=== PATIENT | male | born 1960 | race Caucasian/White ===

== ENCOUNTER 2023-08-15 01:42 | Emergency (ER) | payer OTHER, MEDICAID ==
[~2023-08-15] VITALS: Ht 195.6 cm; Wt 245.0 kg
[2023-08-15 01:50] VITALS: BP 132/66
[2023-08-15 02:02] LABS: BASOPHILS % (AUTO) 1 % (0-10)
[2023-08-15 02:04] LABS: EOSINOPHILS # (AUTO) 0.2 10^3/uL (0.0-0.3); EOSINOPHILS % (AUTO) 5 % (0-10); HEMATOCRIT 29 % (40-54); HEMOGLOBIN 8.9 g/dL (13.3-17.7); LYMPHOCYTES # (AUTO) 0.5 10^3/uL (1.0-4.0); LYMPHOCYTES % (AUTO) 11 % (12-44); MEAN CORPUSCULAR HEMOGLOBIN 28 pg (25-34); MEAN CORPUSCULAR HGB CONC 31 g/dL (32-36); MEAN CORPUSCULAR VOLUME 91 fL (80-99); MONOCYTES # (AUTO) 0.4 10^3/uL (0.0-1.0); MONOCYTES % (AUTO) 10 % (0-12); NEUTROPHILS # (AUTO) 3.3 10^3/uL (1.8-7.8); NEUTROPHILS % (AUTO) 73 % (42-75); PLATELET COUNT 121 10^3/uL (130-400); WHITE BLOOD COUNT 4.5 10^3/uL (4.3-11.0)
[2023-08-15 02:13] LABS: INR 1.7 (0.8-1.4); PROTHROMBIN TIME PATIENT 20.5 SEC (12.2-14.7)
[2023-08-15 02:14] LABS: ALBUMIN 3.4 GM/DL (3.2-4.5); CHLORIDE 97 MMOL/L (98-107); POTASSIUM 3.4 MMOL/L (3.6-5.0); SODIUM 137 MMOL/L (135-145)
[2023-08-15 02:15] LABS: CALCIUM 8.5 MG/DL (8.5-10.1)
[2023-08-15 02:16] LABS: GLUCOSE 117 MG/DL (70-105); TOTAL PROTEIN 5.8 GM/DL (6.4-8.2)
[2023-08-15 02:17] LABS: CARBON DIOXIDE 29 MMOL/L (21-32)
[2023-08-15 02:18] LABS: BILIRUBIN,TOTAL 1.4 MG/DL (0.1-1.0)
[2023-08-15 02:20] LABS: ALKALINE PHOSPHATASE 186 U/L (40-136); GFR ESTIMATED 48
[2023-08-15 02:21] LABS: BUN/CREATININE RATIO 21
[2023-08-15 02:23] LABS: ALANINE AMINOTRANSFERASE 21 U/L (0-55)
[2023-08-15 02:24] LABS: MAGNESIUM 2.1 MG/DL (1.6-2.4)
--- NOTE | 2023-08-15 02:29 | ED General ---
General Chief Complaint: Cardiac/General Problems Stated Complaint: ADEMA Source of Information: Patient (LIMITED HISTORIAN), EMS, Longterm Records History of Present Illness Date Seen by Provider: Aug 15, 2023 Time Seen by Provider: 01:39 Initial Comments PT ARRIVES VIA EMS FROM [facility] PT IS MORBIDLY OBESE, GREATER THAN 500 LBS--EXACT WEIGHT IS NOT KNOWN, REQUIRES 8 PERSON ASSIST TO TRANSFER FROM EMS COT TO ER BED PT IS HERE FOR CHRONIC EDEMA, AND REPORTEDLY A COUPLE OF DAYS AGO, HIS LASIX DOSE WAS CUT IN HALF FOR UNKNOWN REASONS, AND NOW HE IS REPORTEDLY HAVING SWELLI NG PT IS A POOR HISTORIAN, BUT STATES THE SWELLING HAS BEEN GOING ON FOR A LONG TIME AND IS NOT ANY DIFFERENT TONIGHT PT IS CHRONICALLY SHORT OF BREATH AND IS ON 3L/NC CONTINUOUSLY, AND PT STATES SHORTNESS OF BREATH IS NO DIFFERENT TONIGHT. EMS REPORT THAT O2 SATS WERE IN THE 90'S ON ROOM AIR, AND PT WAS NOT PUT ON O2 BY EMS, AND IS ON ROOM AIR WHEN HE ARRIVES IN ER. NO CHEST PAIN PT HAS NO NEW COMPLAINTS TONIGHT PT HAS CHRONIC VENOUS STASIS CHANGES AND STASIS ULCERS TO LOWER LEGS THAT ARE WEEPING, BUT THERE ARE NO DRESSINGS ON THEM AT THIS TIME. PT WITH CHRONIC ATRIAL FIBRILLATION ON ELIQUIS, COPD WITH CHRONIC RESPIRATORY FAILURE AND OBESITY HYPOVENTILATION, CHF, POLYNEUROPATHY,, CHRONIC LEG CELLULITIS, HTN, CHF, CHRONIC EDEMA, CHRONIC PAIN NO PRIOR VISITS HERE PCP: KASHIF, DR. MORGAN BIZTALK CONSULTANT: DR. EDDY AT [facility] Allergies and Home Medications Allergies Coded Allergies: Penicillins (Verified Allergy, Unknown, 08/15/23) Sulfa (Sulfonamide Antibiotics) (Verified Allergy, Unknown, 08/15/23) azithromycin (Verified Allergy, Unknown, 08/15/23) clarithromycin (Verified Allergy, Unknown, 08/15/23) sulfamethoxazole (Verified Allergy, Unknown, 08/15/23) trimethoprim (Verified Allergy, Unknown, 08/15/23) Patient Home Medication List Home Medication List Reviewed: Yes Review of Systems Review of Systems Constitutional: no symptoms reported Respiratory: see HPI Cardiovascular: see HPI Gastrointestinal: no symptoms reported Musculoskeletal: see HPI Skin: see HPI Psychiatric/Neurological: No Symptoms Reported Past [id number] Hx Patient Social History Tobacco Use?: No Substance use?: No Alcohol Use?: No Past Medical History Surgeries: Yes (RIGHT FOOT-BULLET REMOVED; LIPOMA ON BACK REMOVED) Orthopedic Respiratory: Yes (CHRONIC RESP FAILURE-O2 3L/NC; OBESITY HYPOVENTILATION) Sleep Apnea, COPD Cardiac: Yes (CHF; CHRONIC VENOUS INSUFFICIENCY-PERIPHERAL) Atrial Fibrillation, Cardiomyopathy, Chronic Edema/Swelling, High Cholesterol, Hypertension, Peripheral Vascular Neurological: Yes (POLYNEUROPATHY; TREMOR) Neuropathy Genitourinary: Yes (ELEVATED PSA) Gastrointestinal: No Musculoskeletal: Yes (CHRONIC GENERALIZED PAIN; NON-AMBULATORY) Degenerate Disk Disease, Chronic Back Pain Endocrine: Yes (SUPER MORBID OBESITY--WEIGHT > 500 LBS) Hypothyroidsim Cancer: No Integumentary: Yes (CHRONIC VENOUS STASIS ULCERS; CHRONIC LEG CELLULITIS) Blood Disorders: Yes (ANEMIA) Physical Exam Vital Signs Vital Signs - First Documented 08/15/23 01:50 Temp 36.0 Pulse 66 Resp 16 B/P (MAP) 132/66 (88) Capillary Refill : Height, Weight, BMI Height: '" Weight: lbs. oz. kg; BMI Method: General Appearance: No Apparent Distress, WD/WN, Obese (SUPERMORBIDLY OBESE) HEENT: PERRL/EOMI Neck: Normal Inspection Respiratory: Normal Breath Sounds, No Accessory Muscle Use, No Respiratory Distress Cardiovascular: Regular Rate, Rhythm (AFIB ON MONITOR BUT RATE IS IN 50'S AND IS REGULAR TO AUSCULTATION) Gastrointestinal: Non Tender Genital/Rectal: Other (SCROTAL EDEMA) Extremity: Normal Capillary Refill, Other (UNABLE TO DETERMINE EDEMA DUE TO OBESITY, BUT WITH SIGNIFICANT CHRONIC VENOUS STASIS CHANGES TO BILATERAL LOWER EXTREMITIES, WITH CHRONIC VENOUS STASIS ULCERS,WITH GENERALIZED WEEPING OF LOWER LEGS, AND LICHENIFICATION OF SKIN OF LOWER LEGS. FEET ARE PINK AND WARM WITH GOOD CAP REFILL. 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 Norm as Tested Skin: Warm/Dry, Pallor, Other ( ABOVE) Progress/Results/Core Measures Suspected Sepsis SIRS Temperature: Pulse: Respiratory Rate: Laboratory Tests 08/15/23 01:54: White Blood Count 4.5 Blood Pressure / Mean: Laboratory Tests 08/15/23 01:54: Creatinine 1.60H, INR Comment 1.7H, Platelet Count 121L, Total Bilirubin 1.4H Results/Orders Lab Results Laboratory Tests Test 08/15/23 01:47 08/15/23 01:54 Range/Units Influenza Type A (RT-PCR) Not Detected Not Detecte Influenza Type B (RT-PCR) Not Detected Not Detecte SARS-CoV-2 RNA (RT-PCR) Not Detected Not Detecte White Blood Count 4.5 4.3-11.0 10^3/uL Red Blood Count 3.14 L 4.30-5.52 10^6/uL Hemoglobin 8.9 L 13.3-17.7 g/dL Hematocrit 29 L 40-54 % Mean Corpuscular Volume 91 80-99 fL Mean Corpuscular Hemoglobin 28 25-34 pg Mean Corpuscular Hemoglobin Concent 31 L 32-36 g/dL Red Cell Distribution Width 14.6 H 10.0-14.5 % Platelet Count 121 L 130-400 10^3/uL Mean Platelet Volume 11.0 9.0-12.2 fL Immature Granulocyte % (Auto) 0 % Neutrophils (%) (Auto) 73 42-75 % Lymphocytes (%) (Auto) 11 L 12-44 % Monocytes (%) (Auto) 10 0-12 % Eosinophils (%) (Auto) 5 0-10 % Basophils (%) (Auto) 1 0-10 % Neutrophils # (Auto) 3.3 1.8-7.8 10^3/uL Lymphocytes # (Auto) 0.5 L 1.0-4.0 10^3/uL Monocytes # (Auto) 0.4 0.0-1.0 10^3/uL Eosinophils # (Auto) 0.2 0.0-0.3 10^3/uL Basophils # (Auto) 0.0 0.0-0.1 10^3/uL Immature Granulocyte # (Auto) 0.0 0.0-0.1 10^3/uL Percent Immature Platelet Fraction 4.8 0.0-7.6 % Prothrombin Time 20.5 H 12.2-14.7 SEC INR Comment 1.7 H 0.8-1.4 Activated Partial Thromboplast Time 53 H 24-35 SEC Sodium Level 137 135-145 MMOL/L Potassium Level 3.4 L 3.6-5.0 MMOL/L Chloride Level 97 L 98-107 MMOL/L Carbon Dioxide Level 29 21-32 MMOL/L Anion Gap 11 5-14 MMOL/L Blood Urea Nitrogen 33 H 7-18 MG/DL Creatinine 1.60 H 0.60-1.30 MG/DL Estimat Glomerular Filtration Rate 48 BUN/Creatinine Ratio 21 Glucose Level 117 H 70-105 MG/DL Calcium Level 8.5 8.5-10.1 MG/DL Corrected Calcium 9.0 8.5-10.1 MG/DL Magnesium Level 2.1 1.6-2.4 MG/DL Total Bilirubin 1.4 H 0.1-1.0 MG/DL Aspartate Amino Transf (AST/SGOT) 19 5-34 U/L Alanine Aminotransferase (ALT/SGPT) 21 0-55 U/L Alkaline Phosphatase 186 H 40-136 U/L Troponin I < 0.028 <0.028 NG/ML B-Type Natriuretic Peptide 308.2 H <100.0 PG/ML Total Protein 5.8 L 6.4-8.2 GM/DL Albumin 3.4 3.2-4.5 GM/DL Free Thyroxine 0.90 0.70-1.48 NG/DL TSH Toole Testing 14.21 H 0.35-4.94 UIU/ML My Orders Orders - RAMAKRISHNA WHITING DO Ed Iv/Invasive Line Start (08/15/23:47) Ekg Tracing (08/15/23:47) O2 (08/15/23:47) Monitor-Rhythm Ecg Trace Only (08/15/23:47) Chest 1 View, Ap/Pa Only (08/15/23:47) Bnp [place] (08/15/23:47) Cbc And Automated Diff (08/15/23:47) Comprehensive Metabolic Panel (08/15/23:47) Magnesium (08/15/23:47) Protime With Inr (08/15/23:47) Partial Thromboplastin Time (08/15/23:47) Thyroid Analyzer (08/15/23:47) Troponin I [place] (08/15/23:47) Covid 19 Inhouse Test (08/15/23:47) Influenza A And B By Pcr (08/15/23:47) Free T4 (Free Thyroxine) (11/10/23 01:54) Furosemide Injection (Furosemide Injec (08/15/23 03:15) Potassium Chloride (Tablet) (Potassium C (08/15/23 03:15) Medications Given in ED Current Medications Medications Dose Ordered Sig/Narciso Route Start Time Stop Time Status Last Admin Dose Admin Furosemide 80 mg ONCE ONCE IVP 08/15/23 03:15 08/15/23 03:16 DC 08/15/23 03:56 80 MG Potassium Chloride 40 meq ONCE ONCE PO 08/15/23 03:15 08/15/23 03:16 DC 08/15/23 03:55 40 MEQ Vital Signs/I&O 08/15/23 01:50 Temp 36.0 Pulse 66 Resp 16 B/P (MAP) 132/66 (88) Capillary Refill : Progress Note : Progress Note VITALS ON ARRIVAL: TEMP 36.0=96.8, HR 66, RR 16, BP 132/66, O2 SAT 94% ON 3L/NC LABS: -CBC -CMP -BNP -TROPONIN -PT/PTT/INR EKG WITH AFIB AND SLOW RATE CXR WITH POOR INSPIRATION, BILATERAL ATELECTASIS, CHF GIVEN LASIX AND KCL VITALS STABLE, AFEBRILE, NO HYPOXIA NO DYSPNEA PT HAS NO COMPLAINTS DURING ER STAY REVIEWED SKILLED NURSING PAPERS DISCUSSED TEST RESULTS, NEED FOR FOLLOW UP AND RETURN PRECAUTIONS ECG Initial ECG Impression Date: Aug 15, 2023 Initial ECG Impression Time: 02:10 Initial ECG Rate: 58 Initial ECG Rhythm: A Fib/Flutter Initial ECG Impression: Atrial Fibrillation Initial ECG Comparisson: No Previous ECG Available Comment VA-N/A QRS 107 QT/QTC 445/441 INTERPRETED BY ME Diagnostic Imaging Comments CXR--POOR INSPIRATION; BILATERAL ATELECTASIS, CHF--PENDING RADIOLOGIST REVIEW Reviewed: Reviewed by Me Departure Impression Primary Impression: CHF (congestive heart failure) Additional Impressions: CHRONIC VENOUS STASIS ULCERS CHRONIC LEG EDEMA SUPERMORBID OBESITY Hypothyroidism Chronic respiratory failure Obesity hypoventilation syndrome Chronic atrial fibrillation Anemia Disposition: [facility] Condition: Stable Departure-Patient Inst. Decision time for Depature: 03:15 Referrals: VIRGIE MORGAN MD UNKNOWN (PCP) Primary Care Physician Patient Instructions: Heart Failure ED, Anemia, Possibly From Low Iron, Adult ED, Hypothyroidism (Underactive Thyroid) (DC), Heart failure and atrial fibrillation Add. Discharge Instructions: TAKE YOUR MEDICATIONS PRESCRIBED FOLLOW UP WITH DR. MORGAN THIS WEEK FOR FURTHER CARE All discharge instructions reviewed with patient and/or family. Voiced understanding. RAMAKRISHNA WHITING DO Aug 15, 2023 02:29
[2023-08-15 02:52] LABS: TSH (THYROID ANALYZER) 14.21 UIU/ML (0.35-4.94)
[2023-08-15] MEDS ORDERED: POTASSIUM CHLORIDE 10 MEQ TABLET PO ONE (03:15)
[2023-08-15] MEDS ORDERED: FUROSEMIDE INJECTION 40 MG/4 ML VIAL IVP ONE (03:15)
--- NOTE | 2023-08-15 07:27 | Diagnostic Imaging Report ---
INDICATION: Edema. COMPARISON: None available. TECHNIQUE: 2 radiographs of the chest dated 08/15/2023. FINDINGS: The cardiac silhouette is significantly enlarged. Central pulmonary vascular congestion is present. Background interstitial prominence is noted. Trace pleural fluid noted on the right within the right major fissure. No large-volume pleural effusion. No pneumothorax. No acute osseous abnormality. IMPRESSION: Constellation of findings felt to relate to congestive heart failure with mild interstitial edema and trace right pleural fluid. Dictated by: Dictated on workstation # [id number]
== END 2023-08-15 04:24 ==
LOC: ER 01:46
DX: I48.20 Chronic atrial fibrillation, unspecified (principal); I11.0 Hypertensive heart disease with heart failure; I50.9 Heart failure, unspecified; D64.9 Anemia, unspecified; E66.2 Morbid (severe) obesity with alveolar hypoventilation; J96.10 Chronic respiratory failure, unspecified whether with hypoxia or hypercapnia; E03.9 Hypothyroidism, unspecified; I83.009 Varicose veins of unspecified lower extremity with ulcer of unspecified site; J44.9 Chronic obstructive pulmonary disease, unspecified; Z68.44 Body mass index [BMI] 60.0-69.9, adult; Z99.81 Dependence on supplemental oxygen
CPT/HCPCS: 36415; 71045; 80053; 83735; 83880; 84439; 84443; 84484; 85025; 85610; 85730; 87636; 93005; 93041; 96374

== ENCOUNTER 2023-08-26 13:26 | Inpatient (IN) | payer MEDICARE, MEDICAID ==
[~2023-08-26] VITALS: Ht 198.2 cm; Wt 231.5 kg
[2023-08-26] MEDS ORDERED: NS IV 1000 ML 1,000 ML IV STA ×2 (13:50→15:16)
--- NOTE | 2023-08-26 13:57 | ED General ---
General Chief Complaint: General Problems/Pain Stated Complaint: ALTERED MENTAL STATUS Nursing Triage Note: pt to rm 07 via [facility] from [facility] with c/o "altered mental status" from staff when pt was found by facility staff to be "unresponsive", pt responded immediately to stimuli. cellulitis BLE. blood present in catheter tubing. pt wears 2-3L daily, CPAP at HS. pt on 2L on arrival. Source of Information: Patient, EMS Exam Limitations: No Limitations History of Present Illness Date Seen by Provider: Aug 26, 2023 Time Seen by Provider: 13:42 Initial Comments Here by EMS with report of abnormal labs and altered mental status. Apparently he has low potassium of 2.4 and urine that was nitrate positive. He is at [facility] and [facility] and they elected to send him here for those. He is under the care of [facility]. Patient is morbidly obese with BMI of 82. He has bilateral lower extremity edema and cellulitis and is currently under therapy for that. He is at [facility] for the rehab portion. He has been there for a little while he says but unable to tell exact number of days. Under the care of Dr. MORGAN. EMS reports that the patient was alert a nd awake and answering questions for them with normal blood pressure. Initial blood pressure here was 78/50 but improved with repositioning of cuff to 102/74. Patient denies upper respiratory congestion or cough or fever. Patient states that he was asleep when he thought he was unresponsive per EMS. Timing/Duration: 12 Hours Severity: Moderate Associated Systoms: Shortness of Air (Chronic), Weakness Allergies and Home Medications Allergies Coded Allergies: Penicillins (Verified Allergy, Unknown, 08/15/23) Sulfa (Sulfonamide Antibiotics) (Verified Allergy, Unknown, 08/15/23) azithromycin (Verified Allergy, Unknown, 08/15/23) clarithromycin (Verified Allergy, Unknown, 08/15/23) sulfamethoxazole (Verified Allergy, Unknown, 08/15/23) trimethoprim (Verified Allergy, Unknown, 08/15/23) Patient Home Medication List Home Medication List Reviewed: Yes Review of Systems Review of Systems Constitutional: see HPI; No chills, No fever EENTM: No nose congestion, No throat pain Respiratory: No cough; dyspnea on exertion Cardiovascular: No chest pain; edema Gastrointestinal: No nausea, No vomiting Genitourinary: see HPI Musculoskeletal: muscle weakness Skin: change in color, lesions Psychiatric/Neurological: See HPI Past Oivbypy-Uhautt-Zpiftq Hx Patient Social History Tobacco Use?: No Use of E-Cig and/or Vaping dev: No Substance use?: No Past Medical History Surgeries: Yes (RIGHT FOOT-BULLET REMOVED; LIPOMA ON BACK REMOVED) Orthopedic Respiratory: Yes (CHRONIC RESP FAILURE-O2 3L/NC; OBESITY HYPOVENTILATION) Sleep Apnea, COPD Cardiac: Yes (CHF; CHRONIC VENOUS INSUFFICIENCY-PERIPHERAL) Atrial Fibrillation, Cardiomyopathy, Chronic Edema/Swelling, High Cholesterol, Hypertension, Peripheral Vascular Neurological: Yes (POLYNEUROPATHY; TREMOR) Neuropathy Genitourinary: Yes (ELEVATED PSA) Gastrointestinal: No Musculoskeletal: Yes (CHRONIC GENERALIZED PAIN; NON-AMBULATORY) Degenerate Disk Disease, Chronic Back Pain Endocrine: Yes (SUPER MORBID OBESITY--WEIGHT > 500 LBS) Hypothyroidsim Cancer: No Integumentary: Yes (CHRONIC VENOUS STASIS ULCERS; CHRONIC LEG CELLULITIS) Blood Disorders: Yes (ANEMIA) Family Medical History Reviewed Nursing Family Hx No Pertinent Family Hx Physical Exam-Suspected Sepsis Physical Exam Vital Signs Vital Signs - First Documented 08/26/23 13:35 Temp 37.2 Pulse 60 Resp 22 B/P (MAP) 119/62 (81) Pulse Ox 98 O2 Delivery Mechanical Ventilator O2 Flow Rate 3.00 Capillary Refill : Less Than 3 Seconds Blood Pressure Mean: 81 Height, Weight, BMI Height: '" Weight: lbs. oz. kg; 82.00 BMI Method: General Appearance: No Apparent Distress, Obese (Morbidly) HEENT: PERRL/EOMI, Pharynx Normal Neck: Non Tender, Supple Respiratory: No Respiratory Distress, Other (Unable to ascertain good breath sounds due to morbid obesity) Cardiovascular: Bradycardia, Other (Bilateral lower extremity edema) Gastrointestinal: Soft; No Guarding, No Rebound; Other (Morbidly obese) Genital/Rectal: Other (Major catheter in place) Extremity: Pedal Edema (2-3+ edema up to above knees bilateral) Neurologic/Psychiatric: Alert, Oriented x3, Other (Weak appearing) Skin: warm/dry, other (Venous stasis changes, skin wounds and bullae to bilateral lower extremity with most of this covered with dressing although large bulla noted on left lateral aspect of upper calf area) Focused Exam Lactate Level 08/26/23 13:50: Lactic Acid Level 0.83 Lactic Acid Level Laboratory Tests Test 08/26/23 13:50 Lactic Acid Level 0.83 MMOL/L (0.50-2.00) Progress/Results/Core Measures Suspected Sepsis SIRS Temperature: Pulse: 60 Respiratory Rate: 22 Laboratory Tests 08/26/23 13:50: White Blood Count 8.2 Blood Pressure 119 /62 Mean: 81 08/26/23 13:50: Lactic Acid Level 0.83 Laboratory Tests 08/26/23 13:50: Creatinine 1.82H, INR Comment 1.9H, Platelet Count 128L, Total Bilirubin 1.6H Results/Orders Lab Results Laboratory Tests Test 08/26/23 13:50 08/26/23 13:55 Range/Units White Blood Count 8.2 4.3-11.0 10^3/uL Red Blood Count 3.17 L 4.30-5.52 10^6/uL Hemoglobin 9.1 L 13.3-17.7 g/dL Hematocrit 29 L 40-54 % Mean Corpuscular Volume 93 80-99 fL Mean Corpuscular Hemoglobin 29 25-34 pg Mean Corpuscular Hemoglobin Concent 31 L 32-36 g/dL Red Cell Distribution Width 14.8 H 10.0-14.5 % Platelet Count 128 L 130-400 10^3/uL Mean Platelet Volume 10.0 9.0-12.2 fL Immature Granulocyte % (Auto) 0 % Neutrophils (%) (Auto) 78 H 42-75 % Lymphocytes (%) (Auto) 8 L 12-44 % Monocytes (%) (Auto) 8 0-12 % Eosinophils (%) (Auto) 5 0-10 % Basophils (%) (Auto) 1 0-10 % Neutrophils # (Auto) 6.4 1.8-7.8 10^3/uL Lymphocytes # (Auto) 0.6 L 1.0-4.0 10^3/uL Monocytes # (Auto) 0.7 0.0-1.0 10^3/uL Eosinophils # (Auto) 0.4 H 0.0-0.3 10^3/uL Basophils # (Auto) 0.1 0.0-0.1 10^3/uL Immature Granulocyte # (Auto) 0.0 0.0-0.1 10^3/uL Percent Immature Platelet Fraction 2.9 0.0-7.6 % Prothrombin Time 22.1 H 12.2-14.7 SEC INR Comment 1.9 H 0.8-1.4 Activated Partial Thromboplast Time 49 H 24-35 SEC Sodium Level 142 135-145 MMOL/L Potassium Level 2.4 *L 3.6-5.0 MMOL/L Chloride Level 89 L 98-107 MMOL/L Carbon Dioxide Level 44 H 21-32 MMOL/L Anion Gap 9 5-14 MMOL/L Blood Urea Nitrogen 50 H 7-18 MG/DL Creatinine 1.82 H 0.60-1.30 MG/DL Estimat Glomerular Filtration Rate 41 BUN/Creatinine Ratio 27 Glucose Level 137 H 70-105 MG/DL Lactic Acid Level 0.83 0.50-2.00 MMOL/L Calcium Level 8.9 8.5-10.1 MG/DL Corrected Calcium 9.4 8.5-10.1 MG/DL Total Bilirubin 1.6 H 0.1-1.0 MG/DL Aspartate Amino Transf (AST/SGOT) 10 5-34 U/L Alanine Aminotransferase (ALT/SGPT) 9 0-55 U/L Alkaline Phosphatase 125 40-136 U/L C-Reactive Protein High Sensitivity 9.47 H 0.00-0.50 MG/DL Total Protein 5.7 L 6.4-8.2 GM/DL Albumin 3.4 3.2-4.5 GM/DL Urine Color RED H Urine Clarity CLOUDY Urine pH 8.5 5-9 Urine Specific [place] >=1.030 1.016-1.022 Urine Protein 2+ H NEGATIVE Urine Glucose (UA) NEGATIVE NEGATIVE Urine Ketones NEGATIVE NEGATIVE Urine Nitrite POSITIVE H NEGATIVE Urine Bilirubin NEGATIVE NEGATIVE Urine Urobilinogen 1.0 < = 1.0 MG/DL Urine Leukocyte Esterase 3+ H NEGATIVE Urine RBC (Auto) 3+ H NEGATIVE Urine RBC TNTC H /HPF Urine WBC 10-25 H /HPF Urine Squamous Epithelial Cells NONE /HPF Urine Crystals PRESENT H /LPF Urine Amorphous Sediment LARGE CELIA PHOSPHATE H /LPF Urine Bacteria LARGE H /HPF Urine Casts NONE /LPF Urine Mucus NEGATIVE /LPF Urine Culture Indicated CULTURE PENDING My Orders Orders - YARITZA CHUNG MD Cbc And Automated Diff (08/26/23 13:50) Comprehensive Metabolic Panel (08/26/23 13:50) Blood Culture (08/26/23 13:50) Sputum Culture (08/26/23 13:50) Urinalysis (08/26/23 13:50) Urine Culture (08/26/23 13:50) Protime With Inr (08/26/23 13:50) Partial Thromboplastin Time (08/26/23 13:50) Chest 1 View, Ap/Pa Only (08/26/23 13:50) Ed Iv/Invasive Line Start (08/26/23 13:50) Ed Iv/Invasive Line Start (08/26/23 13:50) Vital Signs Adult Sepsis Patie Q15M (08/26/23 13:50) O2 (08/26/23 13:50) Remove Rings In Anticipation O (08/26/23 13:50) Lactic Acid Analyzer (08/26/23 13:50) Ns Iv 1000 Ml (Ns Iv 1000 Ml) (08/26/23 13:50) Hs C Reactive Protein (08/26/23 13:50) Potassium Cl 10meq/50ml Ivpb (Kcl 10 Meq (08/26/23 14:45) Ekg Tracing (08/26/23 14:31) Venous Access Request Order (08/26/23 14:53) Meropenem Injection (Meropenem Injecti (08/26/23 15:00) Potassium Cl 10meq/50ml Ivpb (Kcl 10 Meq (08/26/23 15:15) Chest 1 View, Ap/Pa Only (08/26/23 15:06) Ns Iv 1000 Ml (Ns Iv 1000 Ml) (08/26/23 15:16) Meropenem Injection (Meropenem Injecti (08/26/23 15:29) Ns (Ivpb) 100 Ml (Sodium Chloride 0.9% 1 (08/26/23 15:29) Picc Cap(S) Change Q7D (09/02/23 16:00) Picc Dressing/Securement Devic Q7D (09/02/23 16:00) Medications Given in ED Current Medications Medications Dose Ordered Sig/Narciso Route Start Time Stop Time Status Last Admin Dose Admin Meropenem 500 mg/ Sodium Chloride 100 ml @ 200 mls/hr ONCE ONCE IV 08/26/23 15:00 08/26/23 15:29 DC 08/26/23 15:32 200 MLS/HR Potassium Chloride 50 ml @ 50 mls/hr ONCE ONCE IV 08/26/23 14:45 08/26/23 15:44 DC 08/26/23 15:27 50 MLS/HR Potassium Chloride 50 ml @ 50 mls/hr ONCE ONCE IV 08/26/23 15:15 08/26/23 16:14 DC 08/26/23 16:50 50 MLS/HR Vital Signs/I&O 08/26/23 08/26/23 08/26/23 08/26/23 13:35 13:35 16:10 16:51 Temp 37.2 36.5 Pulse 60 77 65 Resp 22 18 18 B/P (MAP) 119/62 (81) 131/76 112/61 (78) Pulse Ox 98 97 94 O2 Delivery Mechanical Ventilator Nasal Cannula Room Air Room Air O2 Flow Rate 3.00 2.00 08/26/23 17:38 Pulse 75 Capillary Refill : Less Than 3 Seconds Blood Pressure Mean: 81 Progress Note : Progress Note Seen and evaluated. Given his initial low BP, we will initiate sepsis protocol and initiate 2 IV lines. Due to patient's severe morbid obesity with BMI of 82, we will use ideal body weight calculations if we need to do high-volume fluid resuscitation and this weight would be 77.6 kg and fluid requirement would be approximately 2400 mL. I will initiate 1 L of normal saline now. We will get CBC, CMP, coags, UA, urine culture, blood cultures, lactic acid, CRP and chest x-ray on the patient. Monitor patient. Differential diagnosis includes sepsis, Servira sepsis, UTI, hyperkalemia, other electrolyte abnormality, cellulitis, morbid obesity 1455: Chest x-ray reviewed and shows enlarged cardiac silhouette without failure pattern on my interpretation. CBC reviewed and patient has normal white count of 8.2 with hemoglobin of 9.1 and platelets of 128. Coags do show elevation but patient is on Eliquis so this would be expected. Chemistries do show normal sodium with low potassium of 2.4 and low chloride at 89 with elevated CO2 of 44 and creatinine of 1.82. LFTs are okay although slight elevation of total bili. CRP is elevated at 9.4. UA is concerning for infection with too numerous to count reds and 10-25 whites with nitrite positive findings and large bacteria. I did discuss the case with Dr. Delacruz. Patient will require admission. I have ordered potassium 10 mEq IV and we will repeat dose potassium 10 mill equivalents IV and I have ordered PICC line due to difficult access and requirement for multiple meds. Dr. Ayala and I discussed the case and we will initiate meropenem 500 mg IV and continue that per protocol. Patient does have findings of UTI without severe sepsis or septic shock. He does not require high-volume fluid resuscitation and lactic acid was negative. We will initiate normal saline at 75 mL/h with potassium. He has maintained good O2 sats on his normal oxygen at 2 L. At this point, patient is stable for admission to the floor. EKG was done and noted below. Patient agrees to admission. 1521: Curre nt blood pressure 112/70 with heart rate of 56 with occasional PVCs and O2 sat 99% on 2 L. PICC line is complete and meds and fluids that are ordered will be in process. 1522: I did review chest x-ray after PICC line placement and PICC line in good position without pneumothorax. ECG Initial ECG Impression Date: Aug 26, 2023 Initial ECG Impression Time: 14:43 Initial ECG Rate: 56 Initial ECG Rhythm: A Fib/Flutter Comment Atrial fibrillation with bradycardic rate. Normal axis. Interventricular conduction delay noted. No evidence of ST elevation SC. Interpreted by me. Diagnostic Imaging Diagonstic Imaging: Xray Plain Films/CT/US/NM/MRI: chest Comments [facility]. [place], [place] NAME: KEENAN PRIETO [facility] REC#: [id number] PT STATUS: REG ER : 1960 PHYSICIAN: YARITZA CHUNG MD ADMIT DATE: 08/26/23/ER Draft Date of Exam:08/26/23 CHEST 1 VIEW, AP/PA ONLY INDICATION: Hypotension, sepsis. COMPARISON: 08/15/2023. FINDINGS: Enlargement of the cardiac silhouette is unchanged in magnitude and configuration. Some mild central venous congestion and trace right perihilar juxta-fissural subsegmental atelectasis are stable. No consolidating pneumonia, effusion, or pneumothorax. IMPRESSION: Stable enlargement of the cardiac silhouette and venous distention. No pleural fluid or consolidating pneumonia. No substantial change. Dictated on workstation # [id number] Dict: 08/26/23 1411 Trans: 08/26/23 1435 [id number] Interpreted by: PERCY PUGH Electronically signed by: Departure Communication (Admissions) Time/Spoke to Admitting Phy: 14:55 Impression Primary Impression: Urinary tract infection Qualified Codes: N30.00 - Acute cystitis without hematuria Additional Impressions: Hypokalemia Chronic renal failure Qualified Codes: N18.9 - Chronic kidney disease, unspecified Disposition: ADMITTED INPATIENT Condition: Stable Admissions Decision to Admit Reason: Admit from ER (General) Decision to Admit/Date: Aug 26, 2023 Time/Decision to Admit Time: 14:55 Departure-Patient Inst. Referrals: [facility] (PCP/Family) Primary Care Physician YARITZA CHUNG MD Aug 26, 2023 13:57
[2023-08-26 13:59] LABS: HEMATOCRIT 29 % (40-54)
[2023-08-26 14:01] LABS: BASOPHILS # (AUTO) 0.1 10^3/uL (0.0-0.1); BASOPHILS % (AUTO) 1 % (0-10); EOSINOPHILS # (AUTO) 0.4 10^3/uL (0.0-0.3); EOSINOPHILS % (AUTO) 5 % (0-10); HEMOGLOBIN 9.1 g/dL (13.3-17.7); LYMPHOCYTES # (AUTO) 0.6 10^3/uL (1.0-4.0); LYMPHOCYTES % (AUTO) 8 % (12-44); MEAN CORPUSCULAR HEMOGLOBIN 29 pg (25-34); MEAN CORPUSCULAR HGB CONC 31 g/dL (32-36); MEAN CORPUSCULAR VOLUME 93 fL (80-99); MONOCYTES # (AUTO) 0.7 10^3/uL (0.0-1.0); MONOCYTES % (AUTO) 8 % (0-12); NEUTROPHILS # (AUTO) 6.4 10^3/uL (1.8-7.8); NEUTROPHILS % (AUTO) 78 % (42-75); PLATELET COUNT 128 10^3/uL (130-400); WHITE BLOOD COUNT 8.2 10^3/uL (4.3-11.0)
[2023-08-26 14:10] LABS: INR 1.9 (0.8-1.4); PROTHROMBIN TIME PATIENT 22.1 SEC (12.2-14.7)
[2023-08-26 14:13] LABS: ALBUMIN 3.4 GM/DL (3.2-4.5)
[2023-08-26 14:14] LABS: CALCIUM 8.9 MG/DL (8.5-10.1)
[2023-08-26 14:15] LABS: TOTAL PROTEIN 5.7 GM/DL (6.4-8.2)
[2023-08-26 14:17] LABS: BILIRUBIN,URINE NEGATIVE (NEGATIVE); CLARITY,URINE CLOUDY; COLOR,URINE RED; GLUCOSE, URINE (UA) NEGATIVE (NEGATIVE); KETONES,URINE NEGATIVE (NEGATIVE); NITRITE,URINE POSITIVE (NEGATIVE); PH,URINE 8.5 (5-9); PROTEIN,URINE 2+ (NEGATIVE)
[2023-08-26 14:17] LABS: BILIRUBIN,TOTAL 1.6 MG/DL (0.1-1.0)
[2023-08-26 14:18] LABS: AMORPHOUS SEDIMENT,UR LARGE AMOR PHOSPHATE /LPF; BACTERIA,URINE LARGE /HPF; LEUKOCYTE ESTERASE ,URINE 3+ (NEGATIVE); RBC,URINE TNTC /HPF
[2023-08-26 14:19] LABS: CREATININE SERUM 1.82 MG/DL (0.60-1.30)
[2023-08-26 14:22] LABS: POTASSIUM 2.4 MMOL/L (3.6-5.0)
--- NOTE | 2023-08-26 14:35 | Diagnostic Imaging Report ---
INDICATION: Hypotension, sepsis. COMPARISON: 08/15/2023. FINDINGS: Enlargement of the cardiac silhouette is unchanged in magnitude and configuration. Some mild central venous congestion and trace right perihilar juxta-fissural subsegmental atelectasis are stable. No consolidating pneumonia, effusion, or pneumothorax. IMPRESSION: Stable enlargement of the cardiac silhouette and venous distention. No pleural fluid or consolidating pneumonia. No substantial change. Dictated by: Dictated on workstation # [id number]
[2023-08-26] MEDS ORDERED: POTASSIUM CL 10MEQ/50ML IVPB 50 ML IV ONE ×2 (14:45→15:15)
[2023-08-26] MEDS ORDERED: MEROPENEM INJECTION 500 MG in NS (IVPB) 100 ML 100 ML IV ONE (15:00)
[2023-08-26] MEDS ORDERED: NS IV 1000 ML 1,000 ML IV ONE (15:15)
[2023-08-26] MEDS ORDERED: NS (IVPB) 100 ML 100 ML ONE (15:29)
[2023-08-26] MEDS ORDERED: MEROPENEM INJ 500 MG VIAL IV ONE (15:29)
--- NOTE | 2023-08-26 15:34 | Diagnostic Imaging Report ---
INDICATION: PICC line placement. TECHNIQUE: Frontal chest obtained at 03:07 p.m. and compared to 08/26/2023 at 01:52 p.m. FINDINGS: There is cardiomegaly and central vascular congestion. There is some mild right perihilar scarring or atelectasis. There is a PICC line placed in the left arm with tip overlying the SVC. IMPRESSION: Cardiomegaly. Left-sided PICC line tip overlies low SVC. Central vascular congestion. Some right perihilar scarring or atelectasis is noted. Dictated by: Dictated on workstation # [id number]
[2023-08-26 16:51] VITALS: BP 112/61
[2023-08-26] MEDS: NS IV 1000 ML 1,000 ML IV SCH (18:34)
[2023-08-26 19:00] VITALS: BP 101/64
[2023-08-26 19:15] LABS: CALCIUM 8.4 MG/DL (8.5-10.1)
[2023-08-26 19:20] LABS: CREATININE SERUM 1.65 MG/DL (0.60-1.30)
[2023-08-26 19:24] LABS: POTASSIUM 2.5 MMOL/L (3.6-5.0)
[2023-08-26] MEDS ORDERED: POTASSIUM BICARB 20 MEQ effervescent TABLET PO NR (20:00)
[2023-08-26] MEDS: HYDROcodone/ACETAMINOPHEN 5 MG/325 MG TABLET PO PRN (20:06)
[2023-08-26] MEDS: MEROPENEM 500 MG/NS 100 ML IVPB IV SCH ×2 (21:19)
[2023-08-26] MEDS: MICONAZOLE 2% POWDER 90 GM TOP SCH (21:19)
[2023-08-26 23:54] VITALS: BP 125/77
[2023-08-27] VITALS (7 sets, daily range): BP systolic 117–166; BP diastolic 55–88
[2023-08-27 01:26] LABS: POTASSIUM 2.6 MMOL/L (3.6-5.0)
[2023-08-27 01:27] LABS: CALCIUM 8.7 MG/DL (8.5-10.1)
[2023-08-27 01:31] LABS: CREATININE SERUM 1.73 MG/DL (0.60-1.30)
[2023-08-27] MEDS ORDERED: POTASSIUM CHLORIDE 20 MEQ TABLET PO ONE ×2 (02:30→09:00)
[2023-08-27] MEDS: HYDROcodone/ACETAMINOPHEN 5 MG/325 MG TABLET PO PRN ×3 (03:00→16:46)
[2023-08-27] MEDS: MEROPENEM 500 MG/NS 100 ML IVPB IV SCH ×8 (03:00→21:07)
[2023-08-27] MEDS: NS IV 1000 ML 1,000 ML IV SCH ×2 (05:33→21:07)
[2023-08-27 06:08] LABS: POTASSIUM 2.6 MMOL/L (3.6-5.0)
[2023-08-27 06:10] LABS: CALCIUM 8.5 MG/DL (8.5-10.1)
[2023-08-27 06:14] LABS: CREATININE SERUM 1.58 MG/DL (0.60-1.30)
[2023-08-27 06:36] LABS: LYMPHOCYTES % (AUTO) 7 % (12-44); MEAN CORPUSCULAR HGB CONC 32 g/dL (32-36); MONOCYTES # (AUTO) 0.6 10^3/uL (0.0-1.0)
[2023-08-27 06:37] LABS: BASOPHILS % (AUTO) 0 % (0-10); EOSINOPHILS # (AUTO) 0.3 10^3/uL (0.0-0.3); EOSINOPHILS % (AUTO) 4 % (0-10); HEMATOCRIT 27 % (40-54); HEMOGLOBIN 8.4 g/dL (13.3-17.7); LYMPHOCYTES # (AUTO) 0.6 10^3/uL (1.0-4.0); MEAN CORPUSCULAR HEMOGLOBIN 29 pg (25-34); MEAN CORPUSCULAR VOLUME 91 fL (80-99); MEAN PLATELET VOLUME 10.5 fL (9.0-12.2); MONOCYTES % (AUTO) 7 % (0-12); NEUTROPHILS # (AUTO) 7.4 10^3/uL (1.8-7.8); NEUTROPHILS % (AUTO) 82 % (42-75); PLATELET COUNT 119 10^3/uL (130-400)
[2023-08-27 07:04] LABS: ANISOCYTOSIS SLIGHT; EOSINOPHILS % (MANUAL) 1 %; LYMPHOCYTES % (MANUAL) 6 %; MONOCYTES % (MANUAL) 6 %; NEUTROPHILS % (MANUAL) 87 %
[2023-08-27] MEDS: MICONAZOLE 2% POWDER 90 GM TOP SCH ×2 (08:58→21:10)
--- NOTE | 2023-08-27 08:59 | Wound Care Assessment ---
Wound Care Assessment Date Seen by Provider: Aug 27, 2023 Time Seen by Provider: 08:51 Chief Complaint Bilateral LE wounds, Scrotal edema HPI Abhilash Francis is a 63yoM with past medical history of COPD, Obstructive sleep apnea, CHF, venous insufficiency, atrial fibrillation, HTN, and HLD who was admitted from the ED after experiencing some altered mental status and decreased responsiveness per EMS. He was found to have evidence of urinary tract infection also with hematuria. He was also hypokalemic on admission. He is being treated with IV meropenem and given potassium replacement protocol. Wound care was consulted for bilateral lower extremity wounds as well as scrotal edema and sacral wound. He is a poor historian when it comes to discussing his wounds. He reports they opened on his bilateral legs sometime while he has been in [facility] [place] and rehab for the last 6-8 weeks. He does not recall an inciting event to his right side but reports he scraped the anterolateral surface of his L leg on his wheelchair in rehab. He reports he has no arterial of venous disease of his legs. ED report mentions history of venous insufficiency. His wounds started as bullae then ruptured with moderate amounts of serous drainage. He reports pain in his legs at the sites of his wounds as well as his knees. His scrotum is also swollen and he reports this started in rehab as well, has had an episode of fungal skin infection of his scrotum in the past according to patient that cleared with miconazole powder. Denies any history of diabetes mellitus. There is no evidence of sacral wound on exam but he is at risk due to weight and immobility. Past Medical History: Admits Heart Disease; Denies Diabetes Type II Anemia, DM2, massive obesity (BMI 82), Obesity related hypoventilation with COPD and continuous O2 use, atrial fibrillation Recreational Drug Use: No Alcohol Use: Denies Use Review of Systems General: No Chills; Other (generalized weakness) HEENT: No Head Aches Pulmonary: No Dyspnea, No Cough Cardiovascular: No: Chest Pain Gastrointestinal: No: Nausea, Vomiting Genitourinary: Dysuria, Frequency, Hematuria Musculoskeletal: leg pain Neurological: No: Confusion Exam Vital Signs Date Time Temp Pulse Resp B/P (MAP) Pulse Ox O2 Delivery O2 Flow Rate FiO2 08/27/23 07:16 36.7 82 17 123/55 (77) 92 Nasal Cannula 2.00 Capillary Refill : Less Than 3 Seconds General Appearance: no apparent distress, obese (BMI reportedly 82) HEENT: PERRL/EOMI Neck: supple Cardiovascular: no JVD Respiratory: no respiratory distress, no accessory muscle use, other (on 2LNC) Gastrointestinal: soft Extremities: inflammation, pedal edema, swelling Neurologic/Psychiatric: alert, normal mood/affect, oriented x 3 Skin: other (chronic venous stasis changes to bilateral lower extremity, dry flaky skin of lower legs) Skin Problem Location: lower extremities Skin Character: bullous, drainage, erythema, lesion Right anterolateral calf Cluster of 2 3.8x15x0.1 and 2.7x1.9x0.1 cm no tunneling or undermining full thickness without underlying bone, tendon, muscle granulation is medium and pink large serosanguinous drainage no epithelialization necrotic is medium and slough margins flat Left anterolateral calf Cluster of 3, each quarter sized no tunneling or undermining full thickness without underlying bone, tendon, muscle granulation is medium and pink large serosanguinous drainage no epithelialization necrotic is medium and slough margins flat Scrotum is edematous and erythematous, no open wound on my exam (foul odor) Results Laboratory Tests 08/26/23 13:50: White Blood Count 8.2, Red Blood Count 3.17L, Hemoglobin 9.1L, Hematocrit 29L, Mean Corpuscular Volume 93, Mean Corpuscular Hemoglobin 29, Mean Corpuscular Hemoglobin Concent 31L, Red Cell Distribution Width 14.8H, Platelet Count 128L, Mean Platelet Volume 10.0, Immature Granulocyte % (Auto) 0, Neutrophils (%) (Auto) 78H, Lymphocytes (%) (Auto) 8L, Monocytes (%) (Auto) 8, Eosinophils (%) (Auto) 5, Basophils (%) (Auto) 1, Neutrophils # (Auto) 6.4, Lymphocytes # (Auto) 0.6L, Monocytes # (Auto) 0.7, Eosinophils # (Auto) 0.4H, Basophils # (Auto) 0.1, Immature Granulocyte # (Auto) 0.0, Percent Immature Platelet Fraction 2.9, Prothrombin Time 22.1H, INR Comment 1.9H, Activated Partial Thromboplast Time 49H, Sodium Level 142, Potassium Level 2.4*L, Chloride Level 89L, Carbon Dioxide Level 44H, Anion Gap 9, Blood Urea Nitrogen 50H, Creatinine 1.82H, Estimat Glomerular Filtration Rate 41, BUN/Creatinine Ratio 27, Glucose Level 137H, Lactic Acid Level 0.83, Calcium Level 8.9, Corrected Calcium 9.4, Total Bilirubin 1.6H, Aspartate Amino Transf (AST/SGOT) 10, Alanine Aminotransferase (ALT/SGPT) 9, Alkaline Phosphatase 125, C-Reactive Protein High Sensitivity 9.47H, Total Protein 5.7L, Albumin 3.4 08/26/23 13:55: Urine Color REDH, Urine Clarity CLOUDY, Urine pH 8.5, Urine Specific [place] >=1.030, Urine Protein 2+H, Urine Glucose (UA) NEGATIVE, Urine Ketones NEGATIVE, Urine Nitrite POSITIVEH, Urine Bilirubin NEGATIVE, Urine Urobilinogen 1.0, Urine Leukocyte Esterase 3+H, Urine RBC (Auto) 3+H, Urine RBC TNTCH, Urine WBC 10-25H, Urine Squamous Epithelial Cells NONE, Urine Crystals PRESENTH, Urine Amorphous Sediment LARGE CELIA PHOSPHATEH, Urine Bacteria LARGEH, Urine Casts NONE, Urine Mucus NEGATIVE, Urine Culture Indicated CULTURE PENDING 08/26/23 19:00: Sodium Level 141, Potassium Level 2.5*L, Chloride Level 90L, Carbon Dioxide Level 44H, Anion Gap 7, Blood Urea Nitrogen 47H, Creatinine 1.65H, Estimat Glomerular Filtration Rate 46, BUN/Creatinine Ratio 28, Glucose Level 158H, Calcium Level 8.4L 08/27/23 01:02: Sodium Level 142, Potassium Level 2.6L, Chloride Level 90L, Carbon Dioxide Level 44H, Anion Gap 8, Blood Urea Nitrogen 47H, Creatinine 1.73H, Estimat Glomerular Filtration Rate 43, BUN/Creatinine Ratio 27, Glucose Level 130H, Calcium Level 8.7 08/27/23 05:47: White Blood Count 9.0, Red Blood Count 2.92L, Hemoglobin 8.4L, Hematocrit 27L, Mean Corpuscular Volume 91, Mean Corpuscular Hemoglobin 29, Mean Corpuscular Hemoglobin Concent 32, Red Cell Distribution Width 15.0H, Platelet Count 119L, Mean Platelet Volume 10.5, Immature Granulocyte % (Auto) 0, Neutrophils (%) (Auto) 82H, Lymphocytes (%) (Auto) 7L, Monocytes (%) (Auto) 7, Eosinophils (%) (Auto) 4, Basophils (%) (Auto) 0, Neutrophils # (Auto) 7.4, Lymphocytes # (Auto) 0.6L, Monocytes # (Auto) 0.6, Eosinophils # (Auto) 0.3, Basophils # (Auto) 0.0, Immature Granulocyte # (Auto) 0.0, Neutrophils % (Manual) 87, Lymphocytes % (Manual) 6, Monocytes % (Manual) 6, Eosinophils % (Manual) 1, Percent Immature Platelet Fraction 3.1, Anisocytosis SLIGHT, Sodium Level 140, Potassium Level 2.6L, Chloride Level 89L, Carbon Dioxide Level 42H, Anion Gap 9, Blood Urea Nitrogen 43H, Creatinine 1.58H, Estimat Glomerular Filtration Rate 48, BUN/Creatinine Ratio 27, Glucose Level 128H, Calcium Level 8.5 Assessment/Plan/Dx 1. Bilateral Lower extremity ruptured bullae with underlying wounds secondary to edema and chronic venous stasis 2. Scrotal edema 3. UTI with hematuria 4. Hypokalemia 5. Anemia 6.Thrombocytopenia 7.CKD3 8. Massive obesity with obesity related hypoventilation Plan 1. Cleanse wound bed with vashe and gently scrub to remove flaking skin. Apply barrier ointment to periwound. Silver alginate dressing. Cover with ABD pads and gauze. Change daily. Will need outpatient wound care follow up. 2. Keep elevated with towel under scrotum, scrotal candidiasis. Miconazole powder bid with interdry. Patient is already on meropenem empirically per primary team. 3. IV abx per primary team 4. Replaced with protocol per primary team 5. per primary team, normocytic, likely caused by deborah hematuria. Patient may need urological evaluation if hematuria does not stop 6. per primary 7. EGFR in low to mid 40s with elevated creatinine, gentle fluid hydration per primary team monitor for worsening LE and scrotal edema Supervisory-Addendum Brief Verification & Attestation Participated in pt care: history, MDM, physical Personally performed: exam, history, MDM, supervision of care Care discussed with: Medical Student Procedures: n/a Results interpretation: Verified all documentation BRIAN SHERWOOD Aug 27, 2023 08:59 CESILIA KUMAR MD Aug 27, 2023 12:54
--- NOTE | 2023-08-27 11:46 | History & Physical-Hospitalist ---
History of Present Illness HPI/Chief Complaint CC: AMS HPI: This is a 63yoWM with super morbid obesity of 500# who lives at [facility] due to continued decline in function due to obesity who presented to the ER with AMS. Patient was found to have a UTI and broad spectrum abx were started. Home meds were restarted also. Wound care has assessed his leg wounds. Source: patient Exam Limitations: no limitations Date Seen 08/27/23 Time Seen by a Provider: 11:00 Attending Physician [place] PCP Admitting Physician: Chetna Delacruz MD Attending Physician: Mariela Suresh DO Referring Physician Date of Admission Aug 26, 2023 at 16:10 Home Medications & Allergies Home Medications Reviewed patient Home Medication Reconciliation performed by pharmacy medication reconciliations armored service technician and/or nursing. Patients Allergies have been reviewed. Allergies Allergies Coded Allergies Penicillins (Verified Allergy, Unknown, 08/15/23) Sulfa (Sulfonamide Antibiotics) (Verified Allergy, Unknown, 08/15/23) azithromycin (Verified Allergy, Unknown, 08/15/23) clarithromycin (Verified Allergy, Unknown, 08/15/23) sulfamethoxazole (Verified Allergy, Unknown, 08/15/23) trimethoprim (Verified Allergy, Unknown, 08/15/23) Past Knfehkg-Ufoaec-Pilbeh Hx Patient Social History Marrital Status: single Employed/Student: unemployed Tobacco Use?: No Smoking Status: Former Smoker Use of E-Cig and/or Vaping dev: No Substance use?: No Alcohol Use?: No Pt feels they are or have been: No Immunizations Up To Date Tetanus Booster (TDap): Unknown Hepatitis A: No Hepatitis B: No Current Status Advance Directives: Yes Advance Directive Location: Family to bring in copy Primary Language: Azeri Preferred Spoken Language: Azeri Is interpretation needed?: No Implanted or Applied Medical D: None Past Medical History Surgeries: Orthopedic Sleep Apnea, COPD Atrial Fibrillation, Cardiomyopathy, Chronic Edema/Swelling, High Cholesterol, Hypertension, Peripheral Vascular Neuropathy Degenerate Disk Disease, Chronic Back Pain Hypothyroidsim Blood Disorders: Yes (ANEMIA) Family Medical History Reviewed Nursing Family Hx No Pertinent Family Hx Review of Systems Constitutional: see HPI, malaise, weakness EENTM: no symptoms reported Respiratory: no symptoms reported Cardiovascular: no symptoms reported Gastrointestinal: no symptoms reported Genitourinary: no symptoms reported Musculoskeletal: back pain, joint pain Psychiatric/Neurological: No Symptoms Reported All Other Systems Reviewed Negative Unless Noted: Yes Physical Exam Physical Exam Vital Signs Vital Signs - First Documented 08/26/23 13:35 Temp 37.2 Pulse 60 Resp 22 B/P (MAP) 119/62 (81) Pulse Ox 98 O2 Delivery Mechanical Ventilator O2 Flow Rate 3.00 Capillary Refill : Less Than 3 Seconds Height, Weight, BMI Height: '" Weight: lbs. oz. kg; 58.93 BMI Method: General Appearance: No Apparent Distress, Chronically ill, Obese Eyes: Right Eye Normal Inspection, Right Eye PERRL HEENT: PERRL/EOMI, Normal ENT Inspection, Pharynx Normal, Moist Mucous Membranes Neck: Full Range of Motion, Normal Inspection, Non Tender Respiratory: Chest Non Tender, Lungs Clear, Normal Breath Sounds, No Accessory Muscle Use, No Respiratory Distress Cardiovascular: Regular Rate, Rhythm, No Edema, No Gallop, No JVD, No Murmur, Normal Peripheral Pulses Gastrointestinal: Normal Bowel Sounds, No Organomegaly, No Pulsatile Mass, Non Tender, Soft Back: Normal Inspection, No CVA Tenderness, No Vertebral Tenderness Extremity: Normal Capillary Refill, Normal Inspection, Normal Range of Motion, Non Tender, No Calf Tenderness, No Pedal Edema Neurologic/Psychiatric: Alert, Oriented x3, No Motor/Sensory Deficits, Normal Mood/Affect, green marketing specialist II-XII Norm as Tested, Motor Weakness (generalized) Skin: Normal Color, Warm/Dry Lymphatic: No Adenopathy Results Results/Procedures Labs Laboratory Tests 08/26/23 13:50 08/26/23 19:00 08/27/23 01:02 08/27/23 05:47 Patient resulted labs reviewed. Assessment/Plan Admission Diagnosis Assessment: Sepsis UTI HEBER HTNSuper morbid obesity Debility requiring NH placement longterm Chronic pain Leg wounds Plan: IV abx Home meds Monitor kidney function Lovenox Admission Status: Inpatient Order (span 2 midnights) Reason for Inpatient Admission: sepiss with HEBER and UTI resistant MARIELA SURESH DO Aug 27, 2023 11:46
[2023-08-27] MEDS ORDERED: HYPOCHLOROUS ACID/NaCl WOUND SOLN 250 ML IR SCH (12:15)
[2023-08-27] MEDS ORDERED: PREG50CA2 PO (14:44)
[2023-08-27] MEDS ORDERED: ACET-2650 PO (14:44)
[2023-08-27] MEDS ORDERED: FERR-74 PO (14:44)
[2023-08-27] MEDS ORDERED: ALBU18HF2 INH (14:44)
[2023-08-27] MEDS ORDERED: LEVO50TA6 PO (14:44)
[2023-08-27] MEDS ORDERED: CITA40TA13 PO (14:44)
[2023-08-27] MEDS ORDERED: MENT6OIN2 TP (14:44)
[2023-08-27] MEDS ORDERED: METO5TAB6 PO (14:44)
[2023-08-27] MEDS ORDERED: OXYC-556 PO (14:44)
[2023-08-27] MEDS ORDERED: CARV12.53 PO (14:44)
[2023-08-27] MEDS ORDERED: FLUT1BLS12 INH (14:44)
[2023-08-27] MEDS ORDERED: APIX5TAB PO (14:44)
[2023-08-27] MEDS ORDERED: NITR0.4T39 SL (14:44)
[2023-08-27] MEDS ORDERED: TIZA-169 PO (14:44)
[2023-08-27] MEDS ORDERED: CHOL500050 PO (14:44)
[2023-08-27] MEDS ORDERED: FEBU40TA3 PO (14:44)
[2023-08-27] MEDS ORDERED: TIZA-186 PO (14:44)
[2023-08-27] MEDS ORDERED: AMIN30LI27 PO (14:44)
[2023-08-27] MEDS ORDERED: FURO80TA3 PO (14:44)
[2023-08-27] MEDS ORDERED: BISACODYL 10 MG SUPPOSITORY PR PRN (17:45)
[2023-08-27] MEDS ORDERED: CALCIUM CARBONATE 500 MG CHEW TABLET PO PRN (17:45)
[2023-08-27] MEDS ORDERED: CAMPHOR TP PRN (17:45)
[2023-08-27] MEDS ORDERED: HYDROmorphone INJECTION 2 MG/ML VIAL IV PRN (17:45)
[2023-08-27] MEDS ORDERED: MENTHOL TP PRN (17:45)
[2023-08-27] MEDS ORDERED: LACTULOSE SYRUP 10GM/15ML 30ML UDC PO PRN (17:45)
[2023-08-27] MEDS ORDERED: ONDANSETRON INJECTION 4 MG/2 ML (SDV) IV PRN (17:45)
[2023-08-27] MEDS ORDERED: ANTACID SUSPENSION 30 ML UDC PO PRN (17:45)
[2023-08-27] MEDS ORDERED: MILK OF MAGNESIA 400 MG/5 ML 30 ML UDC PO PRN (17:45)
[2023-08-27] MEDS ORDERED: NITROGLYCERIN 0.4 MG SL TABLETS BTL 25'S SL PRN (17:45)
[2023-08-27] MEDS ORDERED: ONDANSETRON 4 MG ORAL DISSOLVE TABLET PO PRN (17:45)
[2023-08-27] MEDS ORDERED: ACETAMINOPHEN ER 650 MG (ARTHRITIS) PO PRN (17:45)
[2023-08-27] MEDS ORDERED: diphenhydrAMINE INJ 50 MG/ML VIAL IVP PRN (17:45)
[2023-08-27] MEDS ORDERED: PHENOL TP PRN (17:45)
[2023-08-27] MEDS ORDERED: NON-FORMULARY MEDICATION 1 EA EA (Tizanidine HCl 2 MG) PO PRN (17:45)
[2023-08-27] MEDS ORDERED: diphenhydrAMINE 25 MG TABLET PO PRN (17:45)
[2023-08-27] MEDS ORDERED: ACETAMINOPHEN 325 MG TABLET PO PRN (17:45)
[2023-08-27] MEDS ORDERED: RT-ALBUTEROL SULF 2.5 MG/3 ML PRE-MIX VIAL INH PRN (17:45)
[2023-08-27] MEDS: oxyCODONE/ACETAMINOPHEN 10/325MG TABLET PO SCH (17:56)
[2023-08-27] MEDS: inSUlin ASPART 1 UNIT/0.01 ML (PER UNIT) SC SCH (20:44)
[2023-08-27] MEDS ORDERED: RT-ALBUTEROL SULF 2.5 MG/3 ML PRE-MIX VIAL INH SCH (21:00)
[2023-08-27] MEDS ORDERED: MICONAZOLE 2% POWDER 90 GM TOP SCH (21:00)
[2023-08-27] MEDS: APIXABAN 5 MG TABLET PO SCH (21:09)
[2023-08-27] MEDS: MELATONIN 3 MG TABLET PO PRN (21:09)
[2023-08-27] MEDS: carvediloL 12.5 MG TABLET PO SCH (21:09)
[2023-08-27] MEDS: SENNOSIDES 8.6 MG TABLET PO SCH (21:10)
[2023-08-27] MEDS: DOCUSATE SODIUM 100 MG CAPSULE PO SCH (21:10)
[2023-08-27] MEDS ORDERED: ENOXAPARIN 40 MG/0.4 ML SYRINGE SQ SCH (21:45)
[2023-08-28] MEDS: oxyCODONE/ACETAMINOPHEN 10/325MG TABLET PO SCH ×4 (00:15→18:08)
[2023-08-28] MEDS: MEROPENEM 500 MG/NS 100 ML IVPB IV SCH ×8 (03:03→21:07)
[2023-08-28 03:21] VITALS: BP 124/67
--- NOTE | 2023-08-28 05:24 | Progress Note - Hospitalist ---
Subjective HPI/CC On Admission Date Seen by Provider: Aug 28, 2023 Time Seen by Provider: 10:00 CC: AMS HPI: This is a 63yoWM with super morbid obesity of 500# who lives at [facility] due to continued decline in function due to obesity who presented to the ER with AMS. Patient was found to have a UTI and broad spectrum abx were started. Home meds were restarted also. Wound care has assessed his leg wounds. Subjective/Events-last exam About the same Potassium is still low BM+ Creat stable Review of Systems General: Fatigue, Malaise Focused Exam Lactate Level 08/26/23 13:50: Lactic Acid Level 0.83 Objective Exam Vital Signs Vital Signs Date Time Temp Pulse Resp B/P (MAP) Pulse Ox O2 Delivery O2 Flow Rate FiO2 08/28/23 11:00 96 NIV CPAP 2.00 08/28/23 07:42 36.4 56 16 130/70 (90) Capillary Refill : Less Than 3 Seconds General Appearance: No Apparent Distress, WD/WN, Chronically ill Respiratory: Lungs Clear, Normal Breath Sounds Cardiovascular: Regular Rate, Rhythm Results/Procedures Lab Laboratory Tests 08/28/23 05:55 Patient resulted labs reviewed. Assessment/Plan Assessment and Plan Assess & Plan/Chief Complaint Assessment: Sepsis Refractory hypokalemia UTI HEBER HTNSuper morbid obesity Debility requiring NH placement penitentiary Chronic pain Leg wounds CKD Plan: IV abx Home meds Monitor kidney function Eliquis Clinical Quality Measures DVT/VTE Risk/Contraindication: Contraindications-Mechi: Other *list below* Other: cellulitis of the legs UMESH WEISS DO Aug 28, 2023 05:24
[2023-08-28] MEDS: LEVOTHYROXINE 50 MCG TABLET PO SCH (05:52)
[2023-08-28 06:07] LABS: HEMOGLOBIN 8.1 g/dL (13.3-17.7); LYMPHOCYTES # (AUTO) 0.7 10^3/uL (1.0-4.0); MEAN CORPUSCULAR HEMOGLOBIN 29 pg (25-34)
[2023-08-28 06:09] LABS: BASOPHILS % (AUTO) 1 % (0-10); EOSINOPHILS # (AUTO) 0.3 10^3/uL (0.0-0.3); EOSINOPHILS % (AUTO) 5 % (0-10); HEMATOCRIT 26 % (40-54); LYMPHOCYTES % (AUTO) 13 % (12-44); MEAN CORPUSCULAR HGB CONC 32 g/dL (32-36); MEAN CORPUSCULAR VOLUME 92 fL (80-99); MEAN PLATELET VOLUME 10.1 fL (9.0-12.2); MONOCYTES # (AUTO) 0.5 10^3/uL (0.0-1.0); MONOCYTES % (AUTO) 9 % (0-12); NEUTROPHILS % (AUTO) 72 % (42-75); PLATELET COUNT 105 10^3/uL (130-400); WHITE BLOOD COUNT 5.5 10^3/uL (4.3-11.0)
[2023-08-28] MEDS: inSUlin ASPART 1 UNIT/0.01 ML (PER UNIT) SC SCH ×4 (06:12→20:31)
[2023-08-28 06:20] LABS: ALBUMIN 2.9 GM/DL (3.2-4.5)
[2023-08-28 06:21] LABS: CALCIUM 8.4 MG/DL (8.5-10.1)
[2023-08-28 06:24] LABS: BILIRUBIN,TOTAL 1.5 MG/DL (0.1-1.0)
[2023-08-28 06:26] LABS: CREATININE SERUM 1.44 MG/DL (0.60-1.30)
[2023-08-28 06:33] LABS: POTASSIUM 2.5 MMOL/L (3.6-5.0)
[2023-08-28] MEDS: RT-ALBUTEROL SULF 2.5 MG/3 ML PRE-MIX VIAL INH SCH ×4 (06:49→19:12)
[2023-08-28] MEDS: POTASSIUM CL 10MEQ/50ML IVPB 50 ML IV SCH ×8 (06:53→14:20)
[2023-08-28 07:42] VITALS: BP 130/70
[2023-08-28] MEDS: FLUTICASONE/VILANTEROL 100/25 MCG (14 DOSES) IH SCH (07:59)
[2023-08-28] MEDS: POTASSIUM CHLORIDE 20 MEQ TABLET PO SCH ×3 (08:00→18:08)
[2023-08-28] MEDS: SENNOSIDES 8.6 MG TABLET PO SCH ×2 (08:00→20:08)
[2023-08-28] MEDS: VITAMIN D3 125 MCG (5,000 UNITS) TABLET PO SCH (08:01)
[2023-08-28] MEDS: DOCUSATE SODIUM 100 MG CAPSULE PO SCH ×2 (08:01→20:08)
[2023-08-28] MEDS: APIXABAN 5 MG TABLET PO SCH ×2 (08:01→21:07)
[2023-08-28] MEDS: carvediloL 12.5 MG TABLET PO SCH ×2 (08:01→20:08)
[2023-08-28] MEDS: CITALOPRAM 20 MG TABLET PO SCH (08:01)
[2023-08-28] MEDS: MICONAZOLE 2% POWDER 90 GM TOP SCH ×2 (08:01→21:08)
[2023-08-28] MEDS: FERROUS SULFATE 325 MG (IRON) TABLET PO SCH ×2 (08:07→18:08)
[2023-08-28] MEDS: HYDROcodone/ACETAMINOPHEN 5 MG/325 MG TABLET PO PRN (08:08)
[2023-08-28] MEDS: PREGABALIN 50 MG CAPSULE PO SCH ×3 (08:11→18:08)
[2023-08-28] MEDS: NS IV 1000 ML 1,000 ML IV SCH ×2 (08:16→21:08)
--- NOTE | 2023-08-28 08:48 | Physical Therapy Progress Note ---
Therapy Progress Note Patient is bed bound/demetrius lift transfer at [facility]. No skilled PT indicated. RN notified. CHRISSY SENIOR PT Aug 28, 2023 08:48
[2023-08-28] MEDS ORDERED: NON-FORMULARY MEDICATION 1 EA EA (Cholecalciferol (Vitamin D3) (Vitamin D3) 125 MCG) PO SCH (09:00)
[2023-08-28] MEDS ORDERED: NON-FORMULARY MEDICATION 1 EA EA (Citalopram Hydrobromide (Citalopram HBr) 40 MG) PO SCH (09:00)
[2023-08-28] MEDS ORDERED: FEBUXOSTAT 40 MG PO SCH (09:00)
[2023-08-28] MEDS ORDERED: NON-FORMULARY MEDICATION 1 EA EA (Fluticasone Propion/Salmeterol (Fluticasone-Salmeterol 2 INH SCH (09:00)
[2023-08-28] MEDS ORDERED: NON-FORMULARY MEDICATION 1 EA EA (Amino Acids/Protein Hydrolys (Pro-Stat Sugar Free Liquid PO SCH (09:00)
[2023-08-28 12:15] VITALS: BP 138/71
[2023-08-28 15:42] VITALS: BP 126/63
[2023-08-28 19:43] VITALS: BP 116/73
[2023-08-29] VITALS: BP 129/81
[2023-08-29] MEDS: oxyCODONE/ACETAMINOPHEN 10/325MG TABLET PO SCH ×5 (00:42→23:48)
[2023-08-29] MEDS: MEROPENEM 500 MG/NS 100 ML IVPB IV SCH ×4 (03:28→09:46)
[2023-08-29 03:47] VITALS: BP 116/77
[2023-08-29 04:51] LABS: HEMOGLOBIN 7.8 g/dL (13.3-17.7); MEAN CORPUSCULAR VOLUME 92 fL (80-99); MONOCYTES % (AUTO) 8 % (0-12)
[2023-08-29 04:52] LABS: BASOPHILS % (AUTO) 1 % (0-10); EOSINOPHILS # (AUTO) 0.3 10^3/uL (0.0-0.3); EOSINOPHILS % (AUTO) 7 % (0-10); HEMATOCRIT 25 % (40-54); LYMPHOCYTES # (AUTO) 0.6 10^3/uL (1.0-4.0); LYMPHOCYTES % (AUTO) 15 % (12-44); MEAN CORPUSCULAR HEMOGLOBIN 28 pg (25-34); MEAN CORPUSCULAR HGB CONC 31 g/dL (32-36); MEAN PLATELET VOLUME 10.7 fL (9.0-12.2); MONOCYTES # (AUTO) 0.3 10^3/uL (0.0-1.0); NEUTROPHILS # (AUTO) 2.8 10^3/uL (1.8-7.8); NEUTROPHILS % (AUTO) 69 % (42-75); PLATELET COUNT 94 10^3/uL (130-400); WHITE BLOOD COUNT 4.1 10^3/uL (4.3-11.0)
[2023-08-29 05:17] LABS: ALBUMIN 2.9 GM/DL (3.2-4.5); BILIRUBIN,TOTAL 1.3 MG/DL (0.1-1.0); CALCIUM 8.5 MG/DL (8.5-10.1); CREATININE SERUM 1.43 MG/DL (0.60-1.30); POTASSIUM 3.1 MMOL/L (3.6-5.0); TOTAL PROTEIN 4.8 GM/DL (6.4-8.2)
[2023-08-29] MEDS: inSUlin ASPART 1 UNIT/0.01 ML (PER UNIT) SC SCH ×4 (05:19→21:05)
[2023-08-29] MEDS: LEVOTHYROXINE 50 MCG TABLET PO SCH (05:59)
--- NOTE | 2023-08-29 06:42 | Progress Note - Hospitalist ---
Subjective HPI/CC On Admission Date Seen by Provider: Aug 29, 2023 Time Seen by Provider: 11:00 CC: AMS HPI: This is a 63yoWM with super morbid obesity of 500# who lives at [facility] due to continued decline in function due to obesity who presented to the ER with AMS. Patient was found to have a UTI and broad spectrum abx were started. Home meds were restarted also. Wound care has assessed his leg wounds. Subjective/Events-last exam Patient asleep on CPAP Minimal movement Bedridden Potassium still low will supplement May be able to discharge back to the custodial tomorrow Focused Exam Lactate Level Objective Exam Vital Signs Vital Signs Date Time Temp Pulse Resp B/P (MAP) Pulse Ox O2 Delivery O2 Flow Rate FiO2 08/29/23 13:00 67 08/29/23 03:47 36.0 18 116/77 (90) 97 NIV CPAP 2.00 Capillary Refill : Less Than 3 Seconds General Appearance: No Apparent Distress, WD/WN, Chronically ill, Obese Respiratory: Lungs Clear, Normal Breath Sounds Cardiovascular: Regular Rate, Rhythm Results/Procedures Lab Laboratory Tests 08/29/23 04:44 Patient resulted labs reviewed. Assessment/Plan Assessment and Plan Assess & Plan/Chief Complaint Assessment: Sepsis Refractory hypokalemia UTI HEBER HTNSuper morbid obesity Debility requiring NH placement retirement Chronic pain Leg wounds CKD Plan: IV abx Home meds Monitor kidney function Eliquis Clinical Quality Measures DVT/VTE Risk/Contraindication: Contraindications-Mechi: Other *list below* Other: cellulitis of the legs UMESH WEISS DO Aug 29, 2023 06:42
[2023-08-29] MEDS: POTASSIUM CL 10MEQ/50ML IVPB 50 ML IV SCH ×4 (06:53→08:21)
[2023-08-29] MEDS: RT-ALBUTEROL SULF 2.5 MG/3 ML PRE-MIX VIAL INH SCH ×3 (07:36→16:00)
[2023-08-29] MEDS: SENNOSIDES 8.6 MG TABLET PO SCH ×2 (07:38→21:05)
[2023-08-29] MEDS: CITALOPRAM 20 MG TABLET PO SCH (07:38)
[2023-08-29] MEDS: POTASSIUM CHLORIDE 20 MEQ TABLET PO SCH ×3 (07:38→17:43)
[2023-08-29] MEDS: APIXABAN 5 MG TABLET PO SCH ×2 (07:38→21:05)
[2023-08-29] MEDS: FLUTICASONE/VILANTEROL 100/25 MCG (14 DOSES) IH SCH (07:38)
[2023-08-29] MEDS: carvediloL 12.5 MG TABLET PO SCH ×2 (07:38→21:05)
[2023-08-29] MEDS: DOCUSATE SODIUM 100 MG CAPSULE PO SCH ×2 (07:38→21:06)
[2023-08-29] MEDS: VITAMIN D3 125 MCG (5,000 UNITS) TABLET PO SCH (07:39)
[2023-08-29] MEDS: MICONAZOLE 2% POWDER 90 GM TOP SCH ×2 (07:43→21:06)
[2023-08-29] MEDS: FERROUS SULFATE 325 MG (IRON) TABLET PO SCH ×2 (07:43→17:43)
[2023-08-29] MEDS: PREGABALIN 50 MG CAPSULE PO SCH ×3 (07:45→17:43)
[2023-08-29] MEDS: [UNRECOGNIZED DRUG - REMARK] PO SCH (09:47)
[2023-08-29] MEDS: NS IV 1000 ML 1,000 ML IV SCH (13:02)
[2023-08-29] MEDS ORDERED: cefTRIAXone IV/IM 1,000 MG in NS (IVPB) 50 ML 50 ML IV SCH (15:30)
[2023-08-29 15:45] VITALS: BP 134/81
[2023-08-29 19:34] VITALS: BP 148/88
[2023-08-29] MEDS: MELATONIN 3 MG TABLET PO PRN (23:48)
[2023-08-29 23:52] VITALS: BP 107/62
[2023-08-30] MEDS: NS IV 1000 ML 1,000 ML IV SCH (01:58)
[2023-08-30 03:17] VITALS: BP 117/69
[2023-08-30 05:15] LABS: LYMPHOCYTES % (AUTO) 16 % (12-44); MEAN CORPUSCULAR VOLUME 92 fL (80-99)
[2023-08-30 05:17] LABS: BASOPHILS % (AUTO) 1 % (0-10); EOSINOPHILS # (AUTO) 0.3 10^3/uL (0.0-0.3); EOSINOPHILS % (AUTO) 6 % (0-10); HEMATOCRIT 26 % (40-54); HEMOGLOBIN 7.9 g/dL (13.3-17.7); LYMPHOCYTES # (AUTO) 0.7 10^3/uL (1.0-4.0); MEAN CORPUSCULAR HEMOGLOBIN 29 pg (25-34); MEAN CORPUSCULAR HGB CONC 31 g/dL (32-36); MEAN PLATELET VOLUME 10.9 fL (9.0-12.2); MONOCYTES # (AUTO) 0.4 10^3/uL (0.0-1.0); MONOCYTES % (AUTO) 9 % (0-12); NEUTROPHILS # (AUTO) 3.1 10^3/uL (1.8-7.8); NEUTROPHILS % (AUTO) 68 % (42-75); PLATELET COUNT 100 10^3/uL (130-400); WHITE BLOOD COUNT 4.5 10^3/uL (4.3-11.0)
[2023-08-30] MEDS: inSUlin ASPART 1 UNIT/0.01 ML (PER UNIT) SC SCH ×2 (05:18→11:19)
[2023-08-30 05:43] LABS: POTASSIUM 3.6 MMOL/L (3.6-5.0)
[2023-08-30 05:44] LABS: CALCIUM 8.4 MG/DL (8.5-10.1)
[2023-08-30 05:45] LABS: TOTAL PROTEIN 5.1 GM/DL (6.4-8.2)
[2023-08-30 05:47] LABS: BILIRUBIN,TOTAL 1.3 MG/DL (0.1-1.0)
[2023-08-30 05:49] LABS: CREATININE SERUM 1.42 MG/DL (0.60-1.30)
[2023-08-30] MEDS: oxyCODONE/ACETAMINOPHEN 10/325MG TABLET PO SCH ×2 (05:51→11:57)
[2023-08-30] MEDS: LEVOTHYROXINE 50 MCG TABLET PO SCH (05:51)
[2023-08-30 07:38] VITALS: BP 122/85
[2023-08-30] MEDS: VITAMIN D3 125 MCG (5,000 UNITS) TABLET PO SCH (07:49)
[2023-08-30] MEDS: APIXABAN 5 MG TABLET PO SCH (07:49)
[2023-08-30] MEDS: SENNOSIDES 8.6 MG TABLET PO SCH (07:49)
[2023-08-30] MEDS: POTASSIUM CHLORIDE 20 MEQ TABLET PO SCH ×2 (07:49→11:57)
[2023-08-30] MEDS: CITALOPRAM 20 MG TABLET PO SCH (07:49)
[2023-08-30] MEDS: DOCUSATE SODIUM 100 MG CAPSULE PO SCH (07:50)
[2023-08-30] MEDS: carvediloL 12.5 MG TABLET PO SCH (07:50)
[2023-08-30] MEDS: FLUTICASONE/VILANTEROL 100/25 MCG (14 DOSES) IH SCH (07:55)
[2023-08-30] MEDS: RT-ALBUTEROL SULF 2.5 MG/3 ML PRE-MIX VIAL INH SCH ×2 (07:55→11:08)
[2023-08-30] MEDS: FERROUS SULFATE 325 MG (IRON) TABLET PO SCH (07:57)
[2023-08-30] MEDS: PREGABALIN 50 MG CAPSULE PO SCH (07:57)
[2023-08-30] MEDS: MICONAZOLE 2% POWDER 90 GM TOP SCH (07:58)
[2023-08-30 08:03] VITALS: BP 122/85
[2023-08-30] MEDS ORDERED: RT-ALBUTEROL SULF 2.5 MG/3 ML PRE-MIX VIAL INH PRN (09:00)
[2023-08-30] MEDS: [UNRECOGNIZED DRUG - REMARK] PO SCH (10:26)
[2023-08-30 11:03] VITALS: BP 109/67
[2023-08-30] MEDS ORDERED: MICO90PO TOP (11:36)
[2023-08-30] MEDS ORDERED: FURO80TA3 PO (11:36)
[2023-08-30] MEDS ORDERED: CEFD300C3 PO (11:36)
--- NOTE | 2023-08-30 11:36 | Discharge Summary ---
Discharge Summary Hospital Course Was the Problem List Reviewed?: Yes Problems/Dx: (1) Urinary tract infection Status: Acute Qualifiers: Qualified Codes: N30.00 - Acute cystitis without hematuria (2) Chronic renal failure Status: Acute Qualifiers: Qualified Codes: N18.9 - Chronic kidney disease, unspecified (3) Hypokalemia Status: Acute (4) Obesity hypoventilation syndrome Status: Acute (5) Chronic atrial fibrillation Status: Acute (6) Hypothyroidism Status: Acute (7) CHF (congestive heart failure) Status: Acute (8) Anemia Status: Acute Hospital Course Date of Admission: Aug 26, 2023 at 16:10 Admission Diagnosis : Family Physician/Provider: [place] [place],Counts Include [facility] Beds At [facility] Date of Discharge: 08/30/23 Discharge Diagnosis: [ ] Hospital Course: Standard hospital course after he was admitted due to severe weakness and altered mental status with refractory hypokalemia requiring aggressive potassium supplementation. Superobesity of 500 pounds patient remains bedridden. UTI treated empirically with meropenem narrowed down to Rocephin once culture sensitivity was completed. Potassium is much improved he was set for discharge and long-term rounds with PCP. Labs and Pending Lab Test: Laboratory Tests 08/29/23 15:49: Glucometer 129H 08/29/23 20:21: Glucometer 164H 08/30/23 05:05: White Blood Count 4.5, Red Blood Count 2.76L, Hemoglobin 7.9L, Hematocrit 26L, Mean Corpuscular Volume 92, Mean Corpuscular Hemoglobin 29, Mean Corpuscular Hemoglobin Concent 31L, Red Cell Distribution Width 15.3H, Platelet Count 100L, Mean Platelet Volume 10.9, Immature Granulocyte % (Auto) 0, Neutrophils (%) (Auto) 68, Lymphocytes (%) (Auto) 16, Monocytes (%) (Auto) 9, Eosinophils (%) (Auto) 6, Basophils (%) (Auto) 1, Neutrophils # (Auto) 3.1, Lymphocytes # (Auto) 0.7L, Monocytes # (Auto) 0.4, Eosinophils # (Auto) 0.3, Basophils # (Auto) 0.0, Immature Granulocyte # (Auto) 0.0, Percent Immature Platelet Fraction 3.6, Sodium Level 143, Potassium Level 3.6, Chloride Level 97L, Carbon Dioxide Level 38H, Anion Gap 8, Blood Urea Nitrogen 36H, Creatinine 1.42H, Estimat Glomerular Filtration Rate 55, BUN/Creatinine Ratio 25, Glucose Level 117H, Calcium Level 8.4L, Corrected Calcium 9.2, Total Bilirubin 1.3H, Aspartate Amino Transf (AST/SGOT) 11, Alanine Aminotransferase (ALT/SGPT) 8, Alkaline Phosphatase 96, Total Protein 5.1L, Albumin 3.0L 08/30/23 05:07: Glucometer 102 08/30/23 11:01: Glucometer 126H Microbiology 08/26/23 Urine Culture - Final, Complete Proteus mirabilis Escherichia coli Mixed Bacterial Yareli 08/26/23 Blood Culture - Preliminary, Resulted Staph, Coag Neg ([employer]) Home Meds Active Cefdinir 300 Mg Capsule 300 Mg PO BID Lotrimin AF (Miconazole Nitrate) 2 % Powder 0 Gm TOP BID twice daily Furosemide 80 Mg Tablet 80 Mg PO Q48H Reported Tizanidine HCl 2 Mg Tablet 2 Mg PO Q12H PRN Ventolin Hfa (Albuterol Sulfate) 90 Mcg Hfa.aer.ad 2 Puff INH Q6H PRN Nitroglycerin 0.4 Mg Tab.subl 0.4 Mg SL UD PRN Blistex Medicated Lip Ointment (Menthol/Camphor/Dimeth/Phenol) 0.6 %-0.5 %-1.1 %-0.5 % Oint...g. 1 Applic TP UD PRN Tylenol Arthritis (Acetaminophen) 650 Mg Tablet.er 650 Mg PO Q6H PRN Oxycodone-Acetaminophen 10-325 (Oxycodone HCl/Acetaminophen) 10 Mg-325 Mg Tablet 1 Ea PO 0000,0600,1200,1800 Tizanidine HCl 4 Mg Tablet 4 Mg PO 0800,1400,2200 Lyrica (Pregabalin) 50 Mg Capsule 50 Mg PO 0900,1300,1700 Fluticasone-Salmeterol 250-50 (Fluticasone Propion/Salmeterol) 250 Mcg-50 Mcg/Dose Blst.w.dev 1 Puff INH 0900,1700 Pro-Stat Sugar Free Liquid Pkt (Amino Acids/Protein Hydrolys) 15 Gram-100 Kcal/30 Ml Liquid.pkt 30 Ml PO 0900,1700 Ferrous Sulfate 325 Mg (65 Mg Iron) Tablet 325 Mg PO 0900,1700 Carvedilol 12.5 Mg Tablet 12.5 Mg PO BID HOLD FOR PULSE <55 Eliquis (Apixaban) 5 Mg Tablet 5 Mg PO BID Vitamin D3 (Cholecalciferol (Vitamin D3)) 125 Mcg (5000 Unit) Capsule 125 Mcg PO DAILY Metolazone 5 Mg Tablet 5 Mg PO DAILY MUST GIVE 30 MINUTES PRIOR TO LASIX Levothyroxine Sodium 50 Mcg Tablet 50 Mcg PO DAILY Febuxostat 40 Mg Tablet 40 Mg PO DAILY Citalopram HBr (Citalopram Hydrobromide) 40 Mg Tablet 40 Mg PO DAILY Assessment/Pt Instructions PCP for long-term rounds Discharge Planning: <30 minutes discharge planning Discharge Instructions Discharge Diet: ADA Diet Discharge Physical Examination Vital Signs Vital Signs Date Time Temp Pulse Resp B/P (MAP) Pulse Ox O2 Delivery O2 Flow Rate FiO2 08/30/23 11:08 94 NIV CPAP 2.00 08/30/23 11:03 36.3 58 18 109/67 (81) 08/30/23 08:03 32 General Appearance: No Apparent Distress, WD/WN, Chronically ill Allergies: Coded Allergies: Penicillins (Verified Allergy, Unknown, 08/15/23) Sulfa (Sulfonamide Antibiotics) (Verified Allergy, Unknown, 08/15/23) azithromycin (Verified Allergy, Unknown, 08/15/23) clarithromycin (Verified Allergy, Unknown, 08/15/23) sulfamethoxazole (Verified Allergy, Unknown, 08/15/23) trimethoprim (Verified Allergy, Unknown, 08/15/23) Discharge Summary Date of Admission Aug 26, 2023 at 16:10 Date of Discharge Discharge Date: Aug 30, 2023 Admission Diagnosis Assessment: Sepsis UTI HEBER HTNSuper morbid obesity Debility requiring NH placement 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
== END 2023-08-30 12:45 | DRG 872 ==
LOC: EDUNIT# 13:26 → ER 13:27 → 4TH 16:10
PROVIDERS: ADMIT Family Medicine; ATTEND Internal Medicine
PROC: 5A09357 Assistance with Respiratory Ventilation, Less than 24 Consecutive Hours, Continuous Positive Airway Pressure (ICD-10-PCS; principal; 2023-08-28)
DX: A41.9 Sepsis, unspecified organism (principal); N39.0 Urinary tract infection, site not specified; N17.9 Acute kidney failure, unspecified; I42.9 Cardiomyopathy, unspecified; I13.0 Hypertensive heart and chronic kidney disease with heart failure and stage 1 through stage 4 chronic kidney disease, or unspecified chronic kidney disease; Z68.45 Body mass index [BMI] 70 or greater, adult; R53.81 Other malaise; G89.29 Other chronic pain; E66.01 Morbid (severe) obesity due to excess calories; E87.6 Hypokalemia; Z87.891 Personal history of nicotine dependence; J44.9 Chronic obstructive pulmonary disease, unspecified; I48.91 Unspecified atrial fibrillation; E78.00 Pure hypercholesterolemia, unspecified; M54.9 Dorsalgia, unspecified; E03.9 Hypothyroidism, unspecified; G47.33 Obstructive sleep apnea (adult) (pediatric); I50.9 Heart failure, unspecified; I87.2 Venous insufficiency (chronic) (peripheral); E11.22 Type 2 diabetes mellitus with diabetic chronic kidney disease; E11.40 Type 2 diabetes mellitus with diabetic neuropathy, unspecified; N18.30 Chronic kidney disease, stage 3 unspecified; D63.1 Anemia in chronic kidney disease; D69.6 Thrombocytopenia, unspecified; I87.8 Other specified disorders of veins
CPT/HCPCS: 36415; 36569; 71045; 76937; 80048; 80053; 81000; 82947; 83605; 83735; 85007; 85025; 85027; 85610; 85730; 86141; 87040; 87077; 87088; 87186; 93005; 94640; 94760; 96361; 96365